=== PATIENT | male | born 1975 | race Two or more races ===

== ENCOUNTER 2024-06-22 16:27 | Emergency (ER) | payer MEDICAID, OTHER ==
[~2024-06-22] VITALS: Ht 185.4 cm; Wt 89.6 kg
[2024-06-22 17:53] VITALS: BP 154/92; PULSE 61; RESP 16; TEMP 99; O2SAT 97
[2024-06-22] MEDS: KETOROLAC TROMETH 60MG/2ML VIAL IM ONE (20:04)
[2024-06-22] MEDS ORDERED: METH-1181 PO (21:59)
[2024-06-22] MEDS ORDERED: IBUP-1456 PO (21:59)
== END 2024-06-22 23:21 | disposition home or self-care (01) ==
LOC: ER 16:27
DX: S29.012A Strain of muscle and tendon of back wall of thorax, initial encounter (principal); S16.1XXA Strain of muscle, fascia and tendon at neck level, initial encounter; Z79.899 Other long term (current) drug therapy; V89.2XXA Person injured in unspecified motor-vehicle accident, traffic, initial encounter; Y93.I9 Activity, other involving external motion; Y92.89 Other specified places as the place of occurrence of the external cause; Y99.8 Other external cause status
CPT/HCPCS: 72040; 72070; 96372; 99284; J1885